=== PATIENT | female | born 1970 | race Asian ===

== ENCOUNTER 2017-04-12 12:16 | Inpatient (IN) | payer OTHER ==
[~2017-04-12] VITALS: Ht 162.6 cm; Wt 54.4 kg
[2017-04-12 12:20] VITALS: BP 97/60; PULSE 119; RESP 16; TEMP 97; O2SAT 98
--- NOTE | 2017-04-12 12:20 | NUR ---
Pt bib ALS c/c coming from [facility] for feeling weakness, dizziness, and uncontrolled A-fib. Fluid challenge and IV access placed in prior to arrival. Placed on electronic device monitor A-fib noted at 119 bpm. Pt denies pain and or discomfort, hypotensive at 97/60.
--- NOTE | 2017-04-12 12:22 | NUR ---
MD Boyd at bedside.
[2017-04-12] MEDS ORDERED: DIGOXIN 0.25 MG TABLET PO ONE (12:30)
[2017-04-12] MEDS ORDERED: ASPIRIN 81 MG TAB.CHEW PO ONE (12:30)
[2017-04-12] MEDS ORDERED: NS 500 ML IV ONE (12:30)
--- NOTE | 2017-04-12 12:38 | NUR ---
Patient Gaurang has been made aware of patient location. can be reach for further info [phone].
[2017-04-12] MEDS ORDERED: DIGOXIN 0.5 MG/2 ML AMP IVP ONE (12:45)
[2017-04-12 12:59] LABS: BASOPHILS # (AUTO) 0.2 K/uL (0.0-0.2); BASOPHILS % (AUTO) 2.4 % (0.0-2.0); EOSINOPHILS % (AUTO) 0.2 % (0.0-4.0); HEMATOCRIT 42.4 % (36-48); HEMOGLOBIN 14.3 g/dL (12.0-16.0); LYMPHOCYTES # (AUTO) 0.9 K/uL (1.0-5.5); LYMPHOCYTES % (AUTO) 10.3 % (20.5-51.5); MEAN CORPUSCULAR HEMOGLOBIN 30 pg (27-31); MEAN CORPUSCULAR HGB CONC 34 % (32-36); MEAN CORPUSCULAR VOLUME 88 fL (79.0-98.0); MONOCYTES # (AUTO) 0.4 K/uL (0.0-1.0); MONOCYTES % (AUTO) 4.2 % (1.7-9.3); NEUTROPHILS # (AUTO) 7.3 K/uL (1.8-7.7); NEUTROPHILS % (AUTO) 82.9 % (40.0-70.0); PLATELET COUNT (AUTO) 189 K/uL (130-430); RED BLOOD CELL COUNT(AUTO) 4.83 MIL/uL (4.2-6.2); RED CELL DISTRIBUTION WIDTH 11.8 % (9.0-15.0); WHITE BLOOD COUNT (AUTO) 8.8 K/uL (4.8-10.8)
[2017-04-12 13:05] LABS: CALCIUM 9.1 mg/dL (8.4-11.0); CREATININE 0.55 mg/dL (0.55-1.30); POTASSIUM 3.9 mmol/L (3.5-5.1)
[2017-04-12 13:09] LABS: INR 1.1 (0.8-1.2); PROTHROMBIN TIME 11.4 SECS (9.5-12.5)
[2017-04-12 13:10] LABS: ALBUMIN 3.7 g/dL (3.4-4.8); TOTAL BILIRUBIN 0.8 mg/dL (0.0-1.0); TOTAL PROTEIN, SERUM 6.9 g/dL (6.4-8.3)
[2017-04-12 13:29] LABS: BILIRUBIN,URINE NEGATIVE (NEGATIVE); BLOOD, URINE NEGATIVE (NEGATIVE); CLARITY/URINE CLEAR (CLEAR); COLOR,URINE YELLOW (YELLOW); GLUCOSE,URINE NEGATIVE (NEGATIVE); KETONES,URINE NEGATIVE (NEGATIVE); LEUKOCYTE ESTERASE ,URINE NEGATIVE (NEGATIVE); NITRITE, URINE NEGATIVE (NEGATIVE); PH,URINE 6.5 (5.0-8.0); PROTEIN URINE NEGATIVE (NEGATIVE); UROBILINOGEN,URINE 0.2 (0.2-1.0)
--- NOTE | 2017-04-12 13:30 | NUR ---
Pt is resting in bed comfortably with no noted distress or discomfort.
--- NOTE | 2017-04-12 13:30 | NUR ---
Per monitoring engineer, Lanoxin successfully converts to NSR. HR 81.
--- NOTE | 2017-04-12 13:35 | NUR ---
Dr. Boyd aware of low B/P 96/46. No new orders received. Pt denies c/o C/P, no SOB, no needs verbalized.
--- NOTE | 2017-04-12 14:15 | NUR ---
Dr Boyd was in explaining that the pt will be admitted to the floor.
--- NOTE | 2017-04-12 14:30 | NUR ---
Dr. Boyd aware of low B/P 88/49. No new orders received. Pt denies c/o C/P, no SOB, no needs verbalized.
--- NOTE | 2017-04-12 14:40 | NUR ---
Patient will be admitted to care of Dr. Wright. Admitted to Tele unit. Will go to room 114A. Belongings list completed. Summary report printed. Bedside report given to DADA Graf.
--- NOTE | 2017-04-12 14:43 | NUR ---
ADMISSION NOTE Received patient from ER via [facility], received report from MIKEY GARLAND. Patient admitted with diagnosis of ATRIAL FIBRILLATION WITH HYPOTENSION. Patient oriented to hospital routine, call light, toileting and safety-patient verbalized understanding.
[2017-04-12 14:53] VITALS: BP 98/48; PULSE 65; RESP 18; TEMP 97.2; O2SAT 99
--- NOTE | 2017-04-12 14:55 | NUR ---
NOTE RECEIVED REPORT FROM ADMISSION NURSE. PATIENT HAS NO NOTABLE SIGNS OF DISTRESS, PATIENT DENIES PAIN AT THIS TIME. PATIENTS BED IN LOWEST POSITION, CALL LIGHT WITHIN REACH, AND SIDE RAILS ARE UP FOR SAFETY. PATIENT IS ENCOURAGED TO CALL WHEN NEEDS ARISE. WILL CONTINUE TO MONITOR PATIENT FOR CHANGES IN STATUS. MD ORDERS FOR LOVENOX AND ECHO. SR. PAYROLL PROCESSOR IS AT BEDSIDE TO COMPLETE EXAM. WILL FOLLOW UP WITH RESULTS.
[2017-04-12 14:57] VITALS: BP 98/49; PULSE 74; RESP 18; TEMP 98; O2SAT 98
[2017-04-12] MEDS ORDERED: ENOXAPARIN SODIUM 30 MG/0.3 ML SYRINGE SUBCUT SCH ×2 (15:15→21:00)
--- NOTE | 2017-04-12 15:28 | NUR ---
CARDIOLOGY CONSULT CALLED TO DR BLOOM RE: AF. SPOKE TO ALICE
[2017-04-12] MEDS ORDERED: ENOXAPARIN SODIUM 40 MG/0.4 ML SYRINGE SUBCUT ONE (15:30)
[2017-04-12 16:01] LABS: FREE T4 (FREE THYROXINE) 0.7 ng/dL (0.6-1.6); THYROID STIMULATING HORMONE 0.48 uIu/mL (0.34-4.82)
--- NOTE | 2017-04-12 16:15 | NUR ---
EYEGLASS FRAMES POLISHER NOTE: Pt referred to Php Architect by Nurse, Patrice, for Advanced Directive information. Pt's Nurse states that there does not appear to be any other Php Architect concerns at this time. According to pt's chart, pt is a 46 year old female admitted with the diagnosis of Atrial Fibrillation. CHIEF INNOVATION OFFICER met with pt at bedside. Pt appears to be alert and oriented. Pt presents with calm and pleasant demeanor. CHIEF INNOVATION OFFICER provided pt with Advanced Directive paperwork. CHIEF INNOVATION OFFICER educated pt regarding Advanced Directive information. Pt states that she lives at home with her and 8 y.o. son. Pt states that she has a history of heart issues. Pt reports that she is independent with all ADL's. Pt did not express any other needs or concerns at this time. CHIEF INNOVATION OFFICER provided pt with Php Architect contact information if any additional needs arise. Php Architect will continue to remain available and follow up as needed.
--- NOTE | 2017-04-12 16:53 | NUR ---
NOTE PATIENT HAS NO NOTABLE SIGNS OF DISTRESS, PATIENT DENIES PAIN AT THIS TIME. PATIENTS BED IN LOWEST POSITION, CALL LIGHT WITHIN REACH, AND SIDE RAILS ARE UP FOR SAFETY. PATIENT DENIES FEELING DIZZY. PATIENT IS ENCOURAGED TO CALL WHEN NEEDS ARISE. WILL CONTINUE TO MONITOR PATIENT FOR CHANGES IN STATUS.
--- NOTE | 2017-04-12 18:37 | NUR ---
CLOSING NOTE WAITING TO GIVE REPORT TO SUPERSONIC ENGINEER NURSE. PATIENT HAS NO NOTABLE SIGNS OF DISTRESS, PATIENT DENIES PAIN AT THIS TIME. ALL NEEDS MET AT THIS TIME. PATIENTS BED IN LOWEST POSITION, CALL LIGHT WITHIN REACH, AND SIDE RAILS ARE UP FOR SAFETY. PATIENT DENIES FEELING DIZZY. PATIENT IS ENCOURAGED TO CALL WHEN NEEDS ARISE. WILL CONTINUE TO MONITOR PATIENT FOR CHANGES IN STATUS.
[2017-04-12 19:20] VITALS: BP 104/53; PULSE 69; RESP 20; TEMP 97; O2SAT 99
--- NOTE | 2017-04-12 19:20 | NUR ---
INITIAL NOTES; -Pt is a/o x4, resting in bed. Pt denies any pain, sob,or acute distress. Saline louann- IV sites both rt and lt a/c #20,patent, no s/s any infiltration. All safety measures in place. Bed alarm in place, bed low position and side railsx2. Call light w/in reach. No visitor is at bedside. Discussed poc,all safety measures,not to get out by self, or if experiencing any pain,sob,or any distress to use call light to inform nurse, pt verbalized understanding. All safety measures in place. Call light w/in reach. Continue to monitor
--- NOTE | 2017-04-12 21:00 | NUR ---
DR. OLSON IS AT NURSE'S STATION -No further new order per md this time.
--- NOTE | 2017-04-12 22:24 | NUR ---
ROUNDS; -Pt is awakes, resting in bed. Pt denies any pain, sob,or acute distress. All safety measures in place. Bed alarm in place, bed low position and side railsx2. Call light w/in reach. All safety measures in place. Call light w/in reach. Continue to monitor
[2017-04-13 00:03] VITALS: BP 108/56; RESP 16; TEMP 97.6; O2SAT 98
--- NOTE | 2017-04-13 04:01 | NUR ---
ROUNDS; -Pt is resting in bed. No s/s any pain, sob,or acute distress noted. All safety measures in place. Bed alarm in place, bed low position and side railsx2. Call light w/in reach. All safety measures in place. Call light w/in reach. Continue to monitor pt.
[2017-04-13 04:06] VITALS: BP 102/51; RESP 16; TEMP 97; O2SAT 97
[2017-04-13 06:49] LABS: BASOPHILS % (AUTO) 0.7 % (0.0-2.0); EOSINOPHILS # (AUTO) 0.1 K/uL (0.0-0.4); EOSINOPHILS % (AUTO) 1.4 % (0.0-4.0); HEMATOCRIT 38.3 % (36-48); HEMOGLOBIN 13.1 g/dL (12.0-16.0); LYMPHOCYTES # (AUTO) 1.7 K/uL (1.0-5.5); LYMPHOCYTES % (AUTO) 27.3 % (20.5-51.5); MEAN CORPUSCULAR HEMOGLOBIN 30 pg (27-31); MEAN CORPUSCULAR HGB CONC 34 % (32-36); MEAN CORPUSCULAR VOLUME 88 fL (79.0-98.0); MONOCYTES # (AUTO) 0.4 K/uL (0.0-1.0); MONOCYTES % (AUTO) 5.8 % (1.7-9.3); NEUTROPHILS # (AUTO) 4.2 K/uL (1.8-7.7); NEUTROPHILS % (AUTO) 64.8 % (40.0-70.0); PLATELET COUNT (AUTO) 159 K/uL (130-430); RED BLOOD CELL COUNT(AUTO) 4.38 MIL/uL (4.2-6.2); WHITE BLOOD COUNT (AUTO) 6.4 K/uL (4.8-10.8)
[2017-04-13 06:52] LABS: CALCIUM 8.6 mg/dL (8.4-11.0); CREATININE 0.64 mg/dL (0.55-1.30); POTASSIUM 3.6 mmol/L (3.5-5.1)
--- NOTE | 2017-04-13 07:14 | NUR ---
CLOSING NOTES; -Pt awakes, resting in bed. Pt denies any pain, sob,or acute distress. Saline louann- IV sites both rt and lt a/c #20,patent, no s/s any infiltration. All safety measures in place. Bed alarm in place, bed low position and side railsx2. Call light w/in reach. All safety measures in place. Will endorse to oncoming nurse to continue care. Dr. Wright informed pt that she will be discharge home today, pt verbalized understanding.
--- NOTE | 2017-04-13 07:45 | NUR ---
DR SUBRAMANIAN MAKING ROUNDS, NEW ORDERS RECEIVED FOR DISCHARGE, WILL FOLLOW UP
--- NOTE | 2017-04-13 08:00 | NUR ---
INITIAL NOTE PT RESTING, EASY TO AROUSE, PT DENIES ANY SOB, DISTRESS OR PAIN, VSS, IV TO RIGHT AND LEFT AC NOTED, SALINE LOCKED, NO S/S OF INFILTRATION NOTED, PLAN OF CARE DISCUSSED, PT VERBALIZED AGREEMENT, PT AWARE SHE IS PENDING DISCHARGE IF APPROVED BY STRICKLER ATTENDANT, WILL FOLLOW UP, PT REORIENTED TO USE OF CALL LIGHT AND IT IS PLACED WITHIN REACH, SAFETY MEASURES IN PLACE, BED IN LOW POSITION AND LOCKED, WILL FOLLOW UP
[2017-04-13 08:07] VITALS: BP 104/56; PULSE 63; RESP 15; TEMP 97.2; O2SAT 100
--- NOTE | 2017-04-13 08:16 | NUR ---
Nutrition Update Duane Scale 18 noted. Pt admitted for: Atrial fibrilation. Diet: Cardiac, Low Cholesterol, Low Fat 2 gm Na diet. BMI: 20.6 kg/m2 RD to follow per nutrition care standards.
--- NOTE | 2017-04-13 10:15 | NUR ---
DR BLOOM AT BEDSIDE, MD AGREES WITH DISCHARGE, ORDERED METOPROLOL TO BE ADMINISTERED BEFORE DISCHARGE AND A PRESCRIPTION TO BE PICKED UP AND STARTED TOMORROW. PT MADE AWARE AND EDUCATED REGARDING NEW MEDICATION, WILL FOLLOW UP WITH TRANSITIONAL CARE
[2017-04-13] MEDS ORDERED: METO25TA3 PO (10:30)
--- NOTE | 2017-04-13 10:30 | NUR ---
TRANSITIONAL CARE TRANSITIONAL PACKET REVIEWED WITH PATIENT, PT VERBALIZED UNDERSTANDING, IV SITES REMOVED AND COVERED WITH DRESSING, NO ACTIVE BLEEDING NOTED, PRESCRIPTION FOR NEW MEDICATION GIVEN AND EDUCATION FOR DIAGNOSIS AND NEW MEDICATION REVIEWED, PATIENT AWARE SHE IS TO FOLLOW UP WITH PRIMARY CARE PROVIDER AND BRISKET PULLER IN ONE WEEK, WILL FOLLOW UP
[2017-04-13] MEDS ORDERED: METOPROLOL SUCCINATE 25 MG TAB.SR.24H (TOPROL XL) PO ONE (10:45)
[2017-04-13 10:53] VITALS: BP 104/56; PULSE 63; RESP 16; TEMP 97.2; O2SAT 100
--- NOTE | 2017-04-13 11:20 | NUR ---
D/C Patient Patient given medication reconciliation form and D/C instructions. Exit Care provided. Patient verbalized understanding. MD discussed with patient the results and treatment provided. Ambulatory with steady gait for discharge to home. Patient in stable condition, ID band removed. IV catheter removed, intact and dressing applied, no active bleeding. Rx of metoprolol given. Patient educated on pain management. All belongings sent with patient. Patient escorted out by wheelchair, and son waiting in waiting room.
[2017-04-13 12:21] VITALS: BP 99/54; PULSE 54; RESP 16; TEMP 98.6; O2SAT 100
[2017-04-14] MEDS ORDERED: METOPROLOL SUCCINATE 25 MG TAB.SR.24H (TOPROL XL) PO SCH (09:00)
== END 2017-04-13 11:23 | disposition home or self-care (01) | DRG 315 ==
LOC: SED 12:16 → STU 14:20
PROVIDERS: ADMIT Internal Medicine; ATTEND Internal Medicine
DX: I95.9 Hypotension, unspecified (principal); D68.69 Other thrombophilia; I48.0 Paroxysmal atrial fibrillation; I08.0 Rheumatic disorders of both mitral and aortic valves; K52.9 Noninfective gastroenteritis and colitis, unspecified; Z85.828 Personal history of other malignant neoplasm of skin; Z85.3 Personal history of malignant neoplasm of breast; Z90.10 Acquired absence of unspecified breast and nipple
CPT/HCPCS: 36415; 71010; 80048; 80053; 81003; 81025; 82533; 83735-TC; 83880; 84439; 84443-TC; 84484; 84703; 85025; 85379; 85610-TC; 93005; 93306; 96374; 99285; J1160; J1650; J7030